=== PATIENT | female | born 1980 | race Caucasian/White ===

== ENCOUNTER 2016-11-19 11:24 | Emergency (ER) | payer OTHER ==
[2016-11-19 11:51] VITALS: BP 120/80; PULSE 86; RESP 18; TEMP 98.9; O2SAT 98
--- NOTE | 2016-11-19 12:20 | ED PDOC ---
Arrival/HPI - General Historian: Patient - General Chief Complaint: Abnormal Skin Integrity Time Seen by Provider: 11/19/16 12:02 - History of Present Illness Narrative History of Present Illness (Text): 11/19/16 12:44 Patient reports acute onset of diffuse rash and itchiness which started 3 days ago. States that 4 days prior she did eat shellfish which she is not allergic to , however she does have several food allergies. She also adds that 10 days ago she got 2 new tattoos and both developed an itchy rash surrounding the tatoo 2 days after the tattoos were placed. Reports taking no medication for her symptoms. Otherwise patient reports (-) throat swelling, (-) tongue / lip swelling, (-) dyspnea, (-) cough, (-) wheezing, (-) abdominal pain, (-) nausea ( -) vomiting. The patient has history of allergic reactions. (Zion FITCH, Maggy Viera) Past Medical History - Provider Review Nursing Documentation Reviewed: Yes - Infectious Disease Hx of Infectious Diseases: None - Psychiatric Hx Substance Use: No - Surgical History Hx Section: Yes Family/Social History - Physician Review Nursing Documentation Reviewed: Yes Family/Social History: No Known Family HX Smoking Status: Never Smoked Hx Alcohol Use: Yes Frequency of alcohol use: Socially Hx Substance Use: No Allergies/Home Meds Allergies/Adverse Reactions: Allergies No Known Allergies Allergy (Verified 11/19/16 11:51) Review of Systems - Review of Systems Constitutional: Normal. absent: Fatigue, Weight Change, Fevers ENT: Normal. absent: Hearing Changes, Tinnitus, TMJ Pain Respiratory: Normal. absent: SOB, Cough, Sputum Cardiovascular: Normal. absent: Chest Pain, Palpitations, Edema Musculoskeletal: Normal. absent: Arthralgias, Back Pain, Neck Pain Skin: Normal, Rash, Pruritis. absent: Skin Lesions, Laceration Physical Exam - Physical Exam Narrative Physical Exam (Text): 11/19/16 12:47 GENERAL APPEARANCE: Patient is awake, alert, oriented x 3, in no acute distress. SKIN: (+) Several scattered erythematous papules noted diffusely to the body, most of the papules are pronounced by the new tattoos, located to the sternum and the L lateral ribs, with no signs of infection. Otherwise (-) excoriations, (-) drainage, (-) crusting of lesions is present. HENT: (-) conjunctival injection, (-) chemosis. Oropharynx: clear (-) tongue or lip swelling, (-) tonsillar exudates, (-) erythema. Airway: patent (-) stridor, (-) hoarseness. Mucous membranes moist. Nares: Patent (-) rhinorrhea. NECK: (-) lymphadenopathy, (-) tenderness. CARDIOVASCULAR: Normal rate and rhythm. (-) murmur, (-) gallop. CHEST: (-) rales, (-) wheezing, (-) dyspnea, (-) stridor. Breath sounds equal bilaterally. ABDOMEN: Soft. (-) tenderness, (-) distention, (-) HSM. NEURO: Mental status: Patient is alert, oriented, and with normal strength and tone. (Zion FITCH,Maggy Viera) Vital Signs Temp Pulse Resp BP Pulse Ox 11/19/16 11:44 98.9 F 86 18 120/80 98 Medical Decision Making ED Course and Treatment: I was available for consultation during PA evaluation. The chart was reviewed by me, and I agree with disposition. The documented history was done by the physician cloth colors examiner. The documented physical exam was done by the physician cloth colors examiner. The documented procedures were done by the physician cloth colors examiner. (Young Talbot) 11/19/16 12:16 36 yo F c/o diffuse itchy rash, most notably on the areas of her most recent tatoos. Based on exam, likely allergic reaction to the tattoo ink and recent shellfish ingestion. Patient medicated with by mouth prednisone, Benadryl and Pepcid. Based on history, exam and diagnostic results plan will be for outpatient follow -up. Prescription provided. Patient states she fully agrees with and understands discharge instructions. States that she agrees with the plan and disposition. Verbalized and repeated discharge instructions and plan. I have given the patient opportunity to ask any additional questions. Follow up with primary care physician in 1-2 days without fail. Advised to take medication as prescribed. Return to the emergency room at any time for any new or worsening symptoms. (Zion FITCH,Maggy Viera) - Medication Orders Current Medication Orders: Discontinued Medications Diphenhydramine HCl (Benadryl) 50 mg PO STAT STA Stop: 11/19/16 12:16 Last Admin: 11/19/16 12:31 Dose: 50 mg Famotidine (Pepcid) 40 mg PO STAT STA Stop: 11/19/16 12:16 Last Admin: 11/19/16 12:31 Dose: 40 mg Prednisone (Prednisone Tab) 60 mg PO STAT STA Stop: 11/19/16 12:16 Last Admin: 11/19/16 12:31 Dose: 60 mg - PA / BACK GRINDER / Resident Statement MD/DO has reviewed & agrees with the documentation as recorded. Disposition/Present on Arrival - Present on Arrival Any Indicators Present on Arrival: No History of DVT/PE: No History of Uncontrolled Diabetes: No Urinary Catheter: No History of Decub. Ulcer: No History Surgical Site Infection Following: None - Disposition Have Diagnosis and Disposition been Completed?: Yes Disposition Time: 12:17 Patient Plan: Discharge - Disposition Diagnosis: Rash, Allergic reaction Disposition: HOME/ ROUTINE Condition: GOOD Discharge Instructions (ExitCare): Acute Rash (ED), General Allergic Reaction ( ED) Print Language: ITALIAN Additional Instructions: Thank you for letting us take care of you today. You were treated for rash, allergic reaction. The emergency medical care you received today was directed at your acute symptoms. If you were prescribed any medication, please fill it and take as directed. It may take several days for your symptoms to resolve. Return to the Emergency Department if your symptoms worsen, do not improve, or if you have any other problems. Please contact your doctor in 2 days for re-evaluation and follow up / or call one of the physicians/clinics you have been referred to that are listed on the Patient Visit Information form that is included in your discharge packet. Bring any paperwork you were given at discharge with you along with any medications you are taking to your follow up visit. Our treatment cannot replace ongoing medical care by a primary care provider (PCP) outside of the emergency department. Thank you for allowing the [facility] team to be part of your care today. Prescriptions: DiphenhydrAMINE [Benadryl] 25 mg PO TID #20 cap Famotidine [Pepcid] 40 mg PO DAILY #20 tablet predniSONE [predniSONE Tab] 40 mg PO DAILY #8 tab Referrals: Gasper Reed MD [Staff Provider] - Follow up with primary Forms: WORK NOTE
== END 2016-11-19 13:05 | disposition home or self-care (01) ==
LOC: ED 11:24 → MERGE 11:24 → ED 13:05
DX: T78.40XA Allergy, unspecified, initial encounter (principal); X58.XXXA Exposure to other specified factors, initial encounter; R21 Rash and other nonspecific skin eruption